=== PATIENT | male | born 1950 | race Caucasian/White ===

== ENCOUNTER → 2018-02-03 | Outpatient (CLI) | payer MEDICARE, OTHER ==
[~2018-02-03] VITALS: Ht 182.9 cm; Wt 131.5 kg
[~2018-02-03] MED LIST: AMLODIPINE BESY10 MG PO; ASPIRIN325 PO; IMDUR 30 MG TAB30 M1 PO; LISINOPRIL10 MG PO; ZOCOR20 MG PO
[2018-02-03 12:30] VITALS: BP 164/74
[2018-02-03 12:32] LABS: HEMATOCRIT 44.8 % (42.0-52.0); HEMOGLOBIN 14.9 gm/dL (14.0-18.0); MCH 27.7 pg (26.0-34.0); MCHC 33.3 g/dL (28.0-37.0); MCV 83.2 fL (80.0-100.0); MPV 8.2 fl. (7.2-11.1); RBC 5.38 mil/uL (4.50-6.00); RDW-CV 14.8 % (10.5-14.5); WBC 6.3 thou/uL (4.0-11.0)
[2018-02-03 12:53] LABS: APTT 24.9 Seconds (25.0-31.3)
[2018-02-03 13:32] LABS: ANION GAP 0 mmol/L (7-16); BUN 21 mg/dL (7-18); CALCIUM 9.6 mg/dL (8.5-10.1); CHLORIDE 105 mmol/L (98-107); CO2 35 mmol/L (21-32); CREATININE 1.2 mg/dL (0.6-1.3); GLUCOSE 102 mg/dL (70-99); POTASSIUM 4.2 mmol/L (3.5-5.1); SODIUM 140 mmol/L (136-145)
[2018-02-03 13:37] LABS: ALBUMIN 3.7 g/dL (3.4-5.0); ALKALINE PHOSPHATASE 79 U/L (46-116); CHOLESTEROL 187 mg/dL (<200); SGOT 18 U/L (15-37); SGPT 18 U/L (30-65); TOTAL BILIRUBIN 0.3 mg/dL (<0.1-1.0); TRIGLYCERIDE 124 mg/dL (<150); VLDL 25 mg/dL (<40)
[2018-02-03 13:52] LABS: HDL CHOLESTEROL 46 mg/dL (>40); LDL CHOLESTEROL 117 mg/dL (<100); TC:HDL 4.1 Ratio (Not establshd); TOTAL PROTEIN 7.4 g/dL (6.4-8.2)
[2018-02-03 13:55] LABS: SERUM ASSESSMENT Clear
[2018-02-03 14:16] VITALS: BP 155/75
[2018-02-03 14:34] VITALS: BP 167/89
[2018-02-03 14:49] VITALS: BP 177/98
[2018-02-03 15:05] VITALS: BP 187/89
--- NOTE | 2018-02-03 17:22 | EKG ---
[place] [address] ELECTROCARDIOGRAM REPORT Name: SHIRAISABEL Room: [facility]#: [id number] Admission: 02/03/18 Attend Phys: Orlando Turner MD Discharge: Date of : 54 Report #: [id number] THIS REPORT FOR: //name// [facility] Test Date: 2018-02-03 Test Time: 13:23:06 Pat Name: ISABEL SILVA Department: Room: Gender: M Construction Manager: : 1950 Requested By: Orlando Turner Order Number: [id number] Noam MD: Orlando Turner Measurements Intervals [place] Rate: 72 P: 27 MA: 165 QRS: 62 QRSD: 157 T: 5 QT: 437 QTc: 479 Interpretive Statements Sinus rhythm Right bundle branch block No previous ECG available for comparison Electronically Signed On 02-03-2018 17:22:17 CDT by Orlando Turner [email or web address] <ELECTRONICALLY SIGNED> By: Orlando Turner MD, [facility] 02/03/18 1722 1323 1323 Orlando Turner MD, FACC /EPI
--- NOTE | 2018-02-03 17:29 | CARD ---
[address] [address] CARDIAC CATH REPORT Name: ISABEL SILVA Room: [facility].#: [id number] Admission: 02/03/18 Attend Phys: Orlando Turner MD Discharge: Date of : 54 Report #: [id number] THIS REPORT FOR: //name// APPROVED REPORT Study performed: 02/03/2018 13:08:09 Patient Details Patient Status: Out-Patient Room #: The patient is a 67 year-old male Event Personnel Orlando Turner Head Transfer Clerk, Katelynn Soler RN Flight Surgeon, Katiuska Castellanos Monitor, Mejia Mann Scrub Procedures Performed Art Access - R radial artery , Left Ventriculogram, Selective Right and Left Coronary Angiography Procedure Narrative The patient was brought electively to the Cardiac Catheterization Laboratory and was prepped and draped in a sterile manner. The right wrist was infiltrated with 2% Lidocaine subcutaneous anesthesia. A Slender Glidesheath sheath was inserted into the right radial artery. Coronary angiography was performed using coronary diagnostic catheters. The right coronary system was accessed and visualized with a DCR: [place] 4.0 5fr catheter. The left coronary system was accessed and visualized with a PC: Angled [place] 5fr catheter. The left ventricle was accessed and visualized with a PC: Angled Pig 5fr catheter. Left ventricular/Aortic Valve gradient assessed via catheter pullback. Left ventriculogram was performed in JACOBSEN projection. Pre-demployment femoral angiogram was performed . The patient tolerated the procedure well and there were no complications associated with the procedure. Intraoperative Conscious Sedation Sedation start time: 13:42 Case end Time: 14:00 Fentanyl 50 mcg Versed 2 mg Fluoro Time: 4.4 minutes Dose: DAP 60177 cGycm2 1183.55 mGy Contrast Type and Amount: Visipaque 105 ml Diagnostic [place] [address] CARDIAC CATH REPORT Name: ISABEL SILVA Room: [facility]#: [id number] Admission: 02/03/18 Attend Phys: Orlando Turner MD Discharge: Date of : 54 Report #: [id number] LAD Mild 10% plaquing in the mid and distal portion Diagonal 1 Normal Diagonal 2 Normal Circumflex Mild 10% plaquing in the proximal portion. Moderate 50% narrowing in the midportion. OM1 Normal OM2 Normal Right Coronary Very large branched vessel. Mild 10% plaquing proximally. The remainder the vessel was normal. R PDA Large vessel, normal RPLV Large branched vessel, normal Left Ventriculography The left ventricle is normal in size with normal contractility. The left ventricular ejection fraction is estimated to be 55-60%. Hemodynamics The aortic pressure is 96/59 mmHg with a mean of mmHg. The left ventricular pressure is 102/5 mmHg with a mean of mmHg. The left ventricular end diastolic pressure is 9 mmHg. There was no gradient across the aortic valve upon pullback. Conclusion 1. Mild nonocclusive coronary artery disease. 2. Normal left ventricular systolic function. 3. Normal left ventricular end-diastolic pressure. Recommendations 1. Continue aggressive risk factor modification and medical management. <ELECTRONICALLY SIGNED> By: Orlando uTrner MD, [facility] 02/03/18 1728 27 172Micginger Turner MD, FACC /INF
--- NOTE | 2018-02-20 16:18 | H ---
[address] [address] HISTORY AND PHYSICAL Name: ISABEL SILVA Room: [facility]#: [id number] Admission: 02/03/18 Attend Phys: Orlando Turner MD Discharge: Date of : 54 Report #: [id number] THIS REPORT FOR: //name// CC: Esther Brady INDICATION: Chest pain. HISTORY OF PRESENT ILLNESS: The patient is a very pleasant 67-year-old gentleman with no prior cardiac history. He has been having chest pain recently. This prompted stress testing, which showed evidence of inferoapical ischemia. The patient is being admitted for left heart catheterization and coronary angiography. PAST MEDICAL HISTORY: 1. Abnormal stress test. 2. Hyperlipidemia. 3. Hypertension. ALLERGIES: None known. CURRENT MEDICATIONS: Amlodipine 10 mg daily, aspirin 325 mg daily, Imdur 30 mg daily, lisinopril 12.5 mg daily, simvastatin 20 mg at bedtime. SOCIAL HISTORY: The patient is . PHYSICAL EXAMINATION: VITAL SIGNS: Stable. Blood pressure 100/88, pulse 72 and regular. GENERAL: This is a pleasant gentleman in no distress. Mood and affect appropriate. HEENT: Extraocular muscles intact. Mucous membranes moist. NECK: Shows no jugular venous distention. There are no carotid bruits. CHEST: Reveals clear lung mathias without wheezes or rales. CARDIAC: Reveals a regular rhythm with normal S1 and S2. I do not appreciate gallop or murmur. ABDOMEN: Reveals normal bowel sounds. The abdomen is soft and nontender. EXTREMITIES: Shows no edema. SKIN: Warm and dry. IMPRESSION AND RECOMMENDATIONS: 1. Chest pain with abnormal cardiovascular functional study suggesting underlying ischemic coronary artery disease. 2. Hypertension. 3. [place] [address] HISTORY AND PHYSICAL Name: ISABEL SILVA Room: [facility]#: [id number] Admission: 02/03/18 Attend Phys: Orlando Turner MD Discharge: Date of : 54 Report #: [id number] PLAN: 1. Left heart catheterization with coronary angiography. Further intervention pending those results. 2. Continue medications as outlined above. <ELECTRONICALLY SIGNED> By: Orlando Turner MD, FACC 02/20/18 1618 1526 1550Orlando Turner MD, FACC /nt
== END | disposition home or self-care (01) ==
LOC: M.CL 11:46
PROVIDERS: Internal Medicine Cardiovascular Disease
DX: I25.10 Atherosclerotic heart disease of native coronary artery without angina pectoris (principal); I10 Essential (primary) hypertension; E78.00 Pure hypercholesterolemia, unspecified; Z90.49 Acquired absence of other specified parts of digestive tract; Z79.82 Long term (current) use of aspirin; Z79.899 Other long term (current) drug therapy; Z79.01 Long term (current) use of anticoagulants